=== PATIENT | female | born 1985 | race Caucasian/White ===

== ENCOUNTER 2017-05-20 14:19 | Inpatient (IN) | payer MEDICAID ==
[~2017-05-20] VITALS: Ht 172.7 cm; Wt 69.0 kg
[~2017-05-20 14:19] MED LIST: DOXY100C2 PO; INSU100C5 SQ; INSU100V8 SQ; LABE100T3 PO; [UNRECOGNIZED DRUG - CODE] PO
[2017-05-20] MEDS ORDERED: ONDANSETRON 2MG/ML, 2ML IVPush ONE (15:00)
[2017-05-20] MEDS ORDERED: KETOROLAC 30 MG/1 ML IVPush ONE (15:00)
[2017-05-20] MEDS ORDERED: SODIUM CHLORIDE 0.9% 1,000ML IVBOLUS ONE ×3 (15:00→18:00)
[2017-05-20] MEDS ORDERED: SODIUM CHLORIDE FLUSH 10ML SYR IVF ONE (15:00)
[2017-05-20] MEDS ORDERED: KETOROLAC 30 MG/1 ML ONE (15:03)
[2017-05-20] MEDS ORDERED: ONDANSETRON 2MG/ML, 2ML ONE ×2 (15:04→19:09)
[2017-05-20 15:09] LABS: RAPID INFLUENZA A POSITIVE (Negative); RAPID INFLUENZA B Negative (Negative)
[2017-05-20 15:10] LABS: BASOPHILS # (AUTO) 0.01 x10^3/uL (0-0.1); BASOPHILS % (AUTO) 0 % (0-1); EOSINOPHILS % (AUTO) 0 % (1-7); LYMPHOCYTES # (AUTO) 0.92 x10^3/uL (1-3.4); LYMPHOCYTES % (AUTO) 24 % (22-44); MD NO; MEAN CORPUSCULAR HEMOGLOBIN 21.8 pg (27.0-34.8); MEAN CORPUSCULAR HGB CONC 31.5 g/dL (32.4-35.8); MEAN CORPUSCULAR VOLUME 69.4 fL (80-100); MEAN PLATELET VOLUME 9.1 fL (7.4-10.4); MONOCYTES # (AUTO) 0.44 x10^3/uL (0.2-0.8); MONOCYTES % (AUTO) 11 % (2-9); NEUTROPHILS # (AUTO) 2.53 x10^3/uL (1.8-6.8); NEUTROPHILS % (AUTO) 65 % (42-75); PLATELET COUNT 170 x10^3/uL (130-400); RED BLOOD COUNT 5.04 x10^6/uL (3.82-5.3); RED CELL DISTRIBUTION WIDTH 17.1 % (9.6-15.2)
[2017-05-20 15:23] LABS: ALANINE AMINOTRANSFERASE 13 U/L (12-78); ALBUMIN 3.3 g/dL (3.4-5.0); ANION GAP 13 mmol/L (5-15); CALCIUM 8.3 mg/dL (8.5-10.1); CHLORIDE 104 mmol/L (98-107); CREATININE 0.93 mg/dL (0.55-1.02)
[2017-05-20 15:25] LABS: ALKALINE PHOSPHATASE 64 U/L (45-117); BILIRUBIN,TOTAL 0.4 mg/dL (0.2-1.0); TOTAL PROTEIN 7.3 g/dL (6.4-8.2)
[2017-05-20 16:11] LABS: PH, VENOUS 7.237 pH (7.320-7.420)
[2017-05-20 16:22] LABS: ACETONE, SERUM Moderate(40mg/dL) mg/dL (Negative)
[2017-05-20] MEDS ORDERED: PROMETHAZINE 25 MG/ML, 1ML IM ONE ×2 (16:30→22:30)
[2017-05-20] MEDS ORDERED: PROMETHAZINE 25 MG/ML, 1ML ONE (16:39)
[2017-05-20] MEDS ORDERED: OSELTAMIVIR 75 MG CAPSULE PO ONE (17:00)
[2017-05-20] MEDS ORDERED: INSULIN REGULAR 100 UNITS/ML, 3ML VIAL IVPush ONE (17:00)
[2017-05-20] MEDS ORDERED: INSULIN REGULAR 100 UNITS/ML, 3ML VIAL ONE (17:21)
[2017-05-20] MEDS ORDERED: NS + 20MEQ KCL 1,000 ML IV SCH ×2 (17:34→22:30)
[2017-05-20] MEDS ORDERED: IBUPROFEN 600 MG TABLET PO PRN (18:00)
[2017-05-20] MEDS: INSULIN ASPART 100 UNITS/ML, PEN SQ-INSULIN SCH ×2 (18:00→23:10)
[2017-05-20] MEDS ORDERED: ACETAMINOPHEN 325 MG TABLET PO PRN ×2 (18:00)
[2017-05-20] MEDS ORDERED: ENOXAPARIN 40 MG/0.4 ML ONE (18:31)
[2017-05-20] MEDS: ENOXAPARIN 40 MG/0.4 ML SQ SCH (19:01)
[2017-05-20] MEDS ORDERED: FAMOTIDINE 20 MG/2 ML ONE (19:09)
[2017-05-20 19:37] LABS: MICROSCOPIC INDICATED
[2017-05-20 19:38] LABS: CULTURE INDICATED? YES
[2017-05-20] MEDS: FAMOTIDINE 20 MG/2 ML IVPush SCH (19:42)
[2017-05-20] MEDS: ONDANSETRON 2MG/ML, 2ML IVPush PRN (19:43)
[2017-05-20 22:05] VITALS: BP 97/59
[2017-05-20 22:48] LABS: ANION GAP 14 mmol/L (5-15); CALCIUM 7.4 mg/dL (8.5-10.1); CHLORIDE 110 mmol/L (98-107); CREATININE 0.77 mg/dL (0.55-1.02)
[2017-05-20] MEDS: KETOROLAC 30 MG/1 ML IVPush PRN (23:14)
[2017-05-21] MEDS ORDERED: D5%-0.45% NACL 1,000 ML IV SCH (02:30)
[2017-05-21] MEDS: INSULIN ASPART 100 UNITS/ML, PEN SQ-INSULIN SCH ×6 (02:32→22:39)
[2017-05-21 02:49] VITALS: BP 106/68
[2017-05-21 03:05] LABS: ANION GAP 9 mmol/L (5-15); CALCIUM 7.3 mg/dL (8.5-10.1); CHLORIDE 113 mmol/L (98-107); CREATININE 0.71 mg/dL (0.55-1.02)
[2017-05-21 06:33] LABS: ANION GAP 7 mmol/L (5-15); CALCIUM 7.2 mg/dL (8.5-10.1); CHLORIDE 112 mmol/L (98-107); CREATININE 0.77 mg/dL (0.55-1.02)
[2017-05-21] MEDS: ONDANSETRON 2MG/ML, 2ML IVPush PRN (07:21)
[2017-05-21 07:35] VITALS: BP 102/68
[2017-05-21] MEDS: OSELTAMIVIR 75 MG CAPSULE PO SCH ×2 (08:26→20:44)
[2017-05-21] MEDS: FAMOTIDINE 20 MG/2 ML IVPush SCH ×2 (08:26→20:44)
[2017-05-21] MEDS: KETOROLAC 30 MG/1 ML IVPush PRN (08:32)
[2017-05-21] MEDS ORDERED: INSULIN DETEMIR 100 UNITS/ML, PEN SQ-INSULIN SCH ×2 (09:00→21:00)
[2017-05-21 13:35] VITALS: BP 108/72
[2017-05-21 16:14] LABS: ALBUMIN 2.7 g/dL (3.4-5.0); ANION GAP 3 mmol/L (5-15); CHLORIDE 113 mmol/L (98-107); CREATININE 0.82 mg/dL (0.55-1.02)
[2017-05-21] MEDS ORDERED: INSULIN ASPART 100 UNITS/ML, PEN SQ-INSULIN SCH (16:30)
[2017-05-21] MEDS ORDERED: NS + 20MEQ KCL 1,000 ML IV SCH (17:34)
[2017-05-21] MEDS: ENOXAPARIN 40 MG/0.4 ML SQ SCH (17:46)
[2017-05-21] MEDS: CIPROFLOXACIN 500 MG TABLET PO SCH (20:44)
[2017-05-21 21:34] VITALS: BP 103/74
[2017-05-21] MEDS: INSULIN DETEMIR 100 UNITS/ML, PEN SQ-INSULIN SCH (22:39)
[2017-05-21] MEDS ORDERED: BENZONATATE 100 MG CAPSULE PO PRN (23:00)
[2017-05-22] MEDS: INSULIN ASPART 100 UNITS/ML, PEN SQ-INSULIN SCH ×2 (02:00→06:00)
[2017-05-22] MEDS ORDERED: D5%-0.45% NACL 1,000 ML IV SCH ×2 (02:30)
[2017-05-22 03:31] VITALS: BP 115/74
[2017-05-22 05:23] LABS: ALANINE AMINOTRANSFERASE 15 U/L (12-78); ALBUMIN 2.5 g/dL (3.4-5.0); ANION GAP 4 mmol/L (5-15); CALCIUM 7.3 mg/dL (8.5-10.1); CHLORIDE 115 mmol/L (98-107); CREATININE 0.56 mg/dL (0.55-1.02)
[2017-05-22 05:25] LABS: ALKALINE PHOSPHATASE 39 U/L (45-117); BILIRUBIN,TOTAL 0.1 mg/dL (0.2-1.0); TOTAL PROTEIN 5.5 g/dL (6.4-8.2)
[2017-05-22 07:27] VITALS: BP 129/87
[2017-05-22] MEDS ORDERED: DEXTROSE 50%, 50ML SYRINGE IVPush PRN ×2 (07:30→08:00)
[2017-05-22] MEDS ORDERED: GLUCAGON 1 MG IM PRN (07:30)
[2017-05-22] MEDS ORDERED: DEXTROSE 4 GM TAB.CHEW PO PRN (07:30)
[2017-05-22] MEDS: INSULIN DETEMIR 100 UNITS/ML, PEN SQ-INSULIN SCH (07:51)
[2017-05-22] MEDS: FAMOTIDINE 20 MG/2 ML IVPush SCH (07:53)
[2017-05-22] MEDS: CIPROFLOXACIN 500 MG TABLET PO SCH (07:53)
[2017-05-22] MEDS: OSELTAMIVIR 75 MG CAPSULE PO SCH (07:53)
[2017-05-22] MEDS ORDERED: OSEL75CA PO (08:10)
[2017-05-22] MEDS ORDERED: CIPR500T87 PO (08:10)
[2017-05-22] MEDS ORDERED: ONDA4TAB10 PO (08:10)
[2017-05-22] MEDS ORDERED: SODIUM CHLORIDE FLUSH 10ML SYR IVF SCH (09:00)
== END 2017-05-22 10:17 | disposition home or self-care (01) | DRG 638 ==
LOC: ED 16:49 → EDIP 16:50 → ED 17:04 → 4EST 21:51
PROVIDERS: ADMIT Family Medicine; ATTEND Internal Medicine
DX: E10.10 Type 1 diabetes mellitus with ketoacidosis without coma (principal); N39.0 Urinary tract infection, site not specified; J10.1 Influenza due to other identified influenza virus with other respiratory manifestations; B96.89 Other specified bacterial agents as the cause of diseases classified elsewhere; Z79.4 Long term (current) use of insulin
CPT/HCPCS: 36415; 71010; 80048; 80053; 81001; 82010; 82040; 82803; 82962; 85025; 87077; 87086; 87186; 87400; 96361; 96372; 96374; 96375; J1650; J1815; J1885; J2405; J2550; J3480; J7030; S0028

== ENCOUNTER 2018-08-04 13:00 | Outpatient (CLI) | payer MEDICAID ==
[~2018-08-04 13:00] MED LIST changes: +CIPR500T87 PO; -LABE100T3 PO; +LABE100T6 PO; +ONDA4TAB10 PO; +OSEL75CA PO
[2018-08-04 13:48] LABS: BASOPHILS # (AUTO) 0.05 x10^3/uL (0-0.1); BASOPHILS % (AUTO) 1 % (0-1); EOSINOPHILS # (AUTO) 0.16 x10^3/uL (0-0.4); EOSINOPHILS % (AUTO) 3 % (1-7); LYMPHOCYTES # (AUTO) 2.22 x10^3/uL (1-3.4); LYMPHOCYTES % (AUTO) 38 % (22-44); MD NO; MEAN CORPUSCULAR HEMOGLOBIN 21.6 pg (27.0-34.8); MEAN CORPUSCULAR VOLUME 67.5 fL (80-100); MEAN PLATELET VOLUME 7.7 fL (7.4-10.4); MONOCYTES # (AUTO) 0.36 x10^3/uL (0.2-0.8); MONOCYTES % (AUTO) 6 % (2-9); NEUTROPHILS # (AUTO) 3.04 x10^3/uL (1.8-6.8); NEUTROPHILS % (AUTO) 52 % (42-75); PLATELET COUNT 347 x10^3/uL (130-400); RED BLOOD COUNT 4.65 x10^6/uL (3.82-5.3)
[2018-08-04 13:58] LABS: ANION GAP 4 mmol/L (5-15); CALCIUM 8.1 mg/dL (8.5-10.1); CHLORIDE 110 mmol/L (98-107)
[2018-08-04] MEDS ORDERED: INSU100I42 SQ (15:10)
[2018-08-04] MEDS ORDERED: INSU100I34 SQ (15:10)
== END 2018-08-04 23:59 | disposition home or self-care (01) ==
LOC: STAR 13:00
PROVIDERS: ATTEND Internal Medicine Cardiovascular Disease
DX: I47.1 Supraventricular tachycardia (principal)
CPT/HCPCS: 36415; 71046; 80048; 85025

== ENCOUNTER 2018-08-08 06:34 | Day surgery (SDC) | payer MEDICAID ==
[2018-08-04 14:03] VITALS: BP 104/71
[~2018-08-08] VITALS: Ht 172.7 cm; Wt 68.6 kg
[~2018-08-08 06:34] MED LIST changes: +INSU100I34 SQ; +INSU100I42 SQ
[2018-08-08] MEDS ORDERED: SODIUM CHLORIDE 0.9% 1,000 ML IV SCH (06:43)
[2018-08-08] MEDS ORDERED: LIDOCAINE 1%, 20ML ONE ×2 (06:47→07:59)
[2018-08-08] MEDS ORDERED: ISOPROTERENOL 0.2MG/ML, 5ML ONE (07:59)
[2018-08-08] MEDS ORDERED: MIDAZOLAM 1 MG/ML, 5ML ONE (07:59)
[2018-08-08] MEDS ORDERED: FENTANYL PF 100 MCG/2ML ONE (07:59)
[2018-08-08] MEDS ORDERED: ADENOSINE 6 MG/2 ML ONE (08:39)
[2018-08-08] MEDS ORDERED: METOPROLOL 1 MG/ML, 5ML ONE (09:19)
[2018-08-08] MEDS ORDERED: ACETAMINOPHEN 325 MG TABLET PO PRN (11:30)
[2018-08-08] MEDS ORDERED: ACETAMINOPHEN 325 MG TABLET ONE (12:36)
== END 2018-08-08 14:45 | disposition home or self-care (01) ==
LOC: CACL 06:34
PROVIDERS: ATTEND Internal Medicine Cardiovascular Disease
DX: I47.1 Supraventricular tachycardia (principal); E11.9 Type 2 diabetes mellitus without complications; F17.210 Nicotine dependence, cigarettes, uncomplicated; Z98.51 Tubal ligation status
CPT/HCPCS: 93613; 93621; 93623; 93653; 99156; 99157; C1730; C1894; C2630; J2250; J3010; J3490; J0153